=== PATIENT | female | born 1965 | race African-American/Black ===

== ENCOUNTER 2016-11-22 20:28 | Inpatient (IN) | payer MEDICARE, MEDICAID ==
[~2016-11-22] VITALS: Ht 175.3 cm; Wt 69.9 kg
[2016-11-22 20:28] VITALS: BP 170/96
--- NOTE | 2016-11-22 21:41 | Emergency Room Report ---
History of Present Illness General Chief Complaint: Dyspnea/Respdistress Source: Patient, EMS Present Illness HPI 51 YO F BIBEMS from HD after 2.5 hour session (30 min left) with "I dont feel well" including cough, SOB, chills, headache, weakness, body aches. Denies chest pain, abd pain, nausea/vomiting, diarrhea. + asthma. Non smoker. Allergies: Coded Allergies: DIPHENHYDRAMINE (Verified Allergy, Unknown, 11/22/16) MEPERIDINE (Verified Allergy, Unknown, 11/22/16) PENICILLINS (Verified Allergy, Unknown, 11/22/16) SULFA (SULFONAMIDE ANTIBIOTICS) (Verified Allergy, Unknown, 11/22/16) Patient History Past Medical History: DM, HTN, asthma, renal disease, dialysis Past Surgical History: other - right AV fistula Pertinent Family History: none Social History: Denies: alcohol use, drug use, smoking Now: No Immunizations: UTD Reviewed Nursing Documentation: PMH: Agreed, PSxH: Agreed Nursing Documentation-PMH Hx Dialysis: Yes - ESRD Review of Systems All Other Systems: negative except mentioned in HPI Physical Exam Vital Signs Date Time Temp Pulse Resp B/P Pulse Ox O2 Delivery O2 Flow Rate FiO2 11/22/16 20:18 100.2 106 20 170/96 97 Room Air Sp02 EP Interpretation: reviewed, normal, abnormal General Appearance: normal inspection, well appearing, no apparent distress, alert, GCS 15, non-toxic Head: normocephalic, atraumatic Eyes: bilateral eye EOMI, bilateral eye PERRL ENT: normal ENT inspection, hearing grossly normal, normal voice Neck: normal inspection, full range of motion, supple, no bony tend Respiratory: normal inspection, no respiratory distress, no retraction, no accessory muscle use, rhonchi, wheezing Cardiovascular #1: regular rate, rhythm, no edema Gastrointestinal: normal inspection, normal bowel sounds, non tender, soft, no guarding, no hernia Genitourinary: no CVA tenderness Musculoskeletal: normal inspection, back normal, normal range of motion, Xavier' s Sign negative Neurologic: normal inspection, alert, oriented x3, responsive, 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 Lungs c/w asthma exacerbation A: Improved with duonebs, solumedrol CXR does not show PNA labs pending Endorsed to Dr Reese for tele admission at 940pm EKG Diagnostic Results Rate: tachycardiac Rhythm: NSR ST Segments: no acute changes ASA given to the pt in ED: No Rhythm Strip Diag. Results EP Interpretation: yes Rate: 110 Rhythm: NSR, no PVC's, no ectopy Chest X-Ray Diagnostic Results EP Interpretation: Yes Findings: no consolidation, no effusion, no pneumothorax Number of Views: 1 Last Vital Signs Date Time Temp Pulse Resp B/P Pulse Ox O2 Delivery O2 Flow Rate FiO2 11/22/16 20:18 100.2 106 20 170/96 97 Room Air Status: improved Disposition: ADMITTED INPATIENT Condition: Serious Referrals: VIVEK REESE (PCP) NIECY DONNELLY M.D. Nov 22, 2016 21:41
[2016-11-22] MEDS ORDERED: Solu-MEDROL 125mg Inj IVP ONE (21:45)
[2016-11-22 22:05] LABS: BASOPHILS % (AUTO) 1.2 % (0.0-2.0); LYMPHOCYTES % (AUTO) 19.8 % (20.0-45.0); MEAN CORPUSCULAR HEMOGLOBIN 32.9 PG (27.0-31.0); MEAN CORPUSCULAR HGB CONC 31.6 G/DL (32.0-36.0); MEAN CORPUSCULAR VOLUME 104 FL (80-99); MEAN PLATELET VOLUME 5.1 FL (6.5-10.1); MONOCYTES % (AUTO) 11.7 % (1.0-10.0); NEUTROPHILS % (AUTO) 63.4 % (45.0-75.0); PLATELET COUNT 160 K/UL (150-450); RED BLOOD COUNT 2.58 M/UL (4.20-5.40); RED CELL DISTRIBUTION WIDTH 15.2 % (11.6-14.8); WHITE BLOOD COUNT 5.3 K/UL (4.8-10.8)
[2016-11-22] MEDS ORDERED: Tylenol #3 tab (300mg/30mg) ORAL ONE (22:15)
[2016-11-22] MEDS: Ipratropium 0.02% Inh Soln 2.5ml UD HHN SCH ×2 (22:26→22:27)
[2016-11-22] MEDS: Albuterol ud Inhalation HHN SCH ×2 (22:26→22:27)
[2016-11-22 22:28] LABS: ALANINE AMINOTRANSFERASE 5 U/L (3-33); ALBUMIN/GLOBULIN RATIO 1.6 (1.0-2.7); ANION GAP 18 (5-15); ASPARTATE AMINO TRANSFERASE 21 U/L (5-40); CARBON DIOXIDE 22 mEQ/L (20-30); CHLORIDE 100 mEQ/L (98-107); GLOMERULAR FILTRATION RATE 7.5 mL/min (>60); HEMOLYSIS 5; SODIUM 140 mEQ/L (135-145); TOTAL PROTEIN 6.1 g/dL (6.6-8.7)
[2016-11-22 22:38] LABS: TROPONIN I < 0.30 ng/mL (<=0.30)
[2016-11-22] MEDS ORDERED: METOPROLOL TART25 MG PO (22:43)
[2016-11-22] MEDS ORDERED: CLONIDINE HCL0.3 MG PO (22:45)
[2016-11-22] MEDS ORDERED: AMLODIPINE BESY10 MG PO (22:45)
[2016-11-22] MEDS ORDERED: OMEPRAZOLE20 M2 PO (22:46)
[2016-11-22] MEDS ORDERED: PREDNISONE20 M1 PO (22:46)
[2016-11-22] MEDS ORDERED: RENVELA800 MG PO (22:47)
[2016-11-22] MEDS ORDERED: FUROSEMIDE20 M1 PO (22:48)
[2016-11-22] MEDS ORDERED: ALPRAZOLAM0.5 MG PO (22:53)
[2016-11-22] MEDS ORDERED: HYDROXYCHLOROQ200 M1 PO (22:53)
[2016-11-22] MEDS ORDERED: LORazepam 1mg tab ORAL PRN (23:00)
[2016-11-22] MEDS ORDERED: Nitroglycerin Subl 0.4mg tab (Bottle Of 25) SL PRN (23:00)
[2016-11-22] MEDS ORDERED: Miralax 17gm pkt ORAL PRN (23:00)
[2016-11-22] MEDS ORDERED: ALPRAZolam 0.5mg tab ORAL PRN (23:00)
[2016-11-22] MEDS ORDERED: HydrALAZINE 50mg tab ORAL PRN (23:00)
[2016-11-22] MEDS: DuoNeb 0.5-3(2.5)mg/3ml neb HHN SCH (23:00)
[2016-11-23] VITALS (7 sets, daily range): BP systolic 104–177; BP diastolic 76–92
[2016-11-23] MEDS ORDERED: Vancomycin 1.25 GM in NS 275 ML IVPB ONE ×2 (00:15→06:00)
[2016-11-23] MEDS: DuoNeb 0.5-3(2.5)mg/3ml neb HHN SCH ×6 (03:00→23:28)
[2016-11-23] MEDS: Solu-MEDROL 40mg Inj IVP SCH ×3 (05:55→21:41)
[2016-11-23] MEDS: Azithromycin 250mg tab ORAL SCH (08:50)
[2016-11-23] MEDS: cloNIDine 0.2mg Tab ORAL SCH ×2 (08:50→18:29)
[2016-11-23] MEDS: Aspirin Baby 81mg ORAL SCH (08:50)
[2016-11-23] MEDS: Metoprolol 25mg tab ORAL SCH ×3 (08:50→18:29)
[2016-11-23] MEDS: Heparin 5000 units/ml inj SUBQ SCH ×2 (08:54→21:00)
--- NOTE | 2016-11-23 10:50 | Diagnostic Imaging Report ---
Indication: Shortness of breath Technique: One view of the chest Comparison: none Findings: Lungs and pleural spaces are clear. Heart size is upper limits normal Impression: No acute process
--- NOTE | 2016-11-23 11:21 | Consultation ---
Consult Note Assessment/Plan dict NIECY ROSARIO Nov 23, 2016 11:21
--- NOTE | 2016-11-23 19:17 | Consultation ---
DATE OF CONSULTATION: 11/23/2016 CHIEF COMPLAINT: Shortness of breath. HISTORY OF PRESENT ILLNESS: The patient is a 51-year-old woman who has had cough and congestion with yellow mucus for several days. She states that this became worse while she was finishing her dialysis yesterday and she was brought to the emergency department from her dialysis unit. She was found to have a clear chest x-ray and wheezing and diagnosis of asthma was made. The patient states that she has not been aware of asthma in the past. She has had pneumonia twice before. PAST MEDICAL HISTORY: Hypertension, renal failure on dialysis, pneumonia, vitiligo. ALLERGIES: Benadryl, Demerol, penicillin, sulfa. MEDICATIONS: Reviewed. SOCIAL HISTORY: She smokes occasionally REVIEW OF SYSTEMS: Otherwise unremarkable. PHYSICAL EXAMINATION: GENERAL: The patient is alert and responds appropriately. VITAL SIGNS: Blood pressure has been elevated as high as 179/88. She had a low-grade fever 100.2 yesterday. SKIN: Warm and dry. Vitiligo is noted. HEENT: head is normocephalic. She has placed. CHEST: Expiratory wheezing. CARDIAC: Rhythm is regular. ABDOMEN: Soft and nontender. EXTREMITIES: No edema. DIAGNOSTIC DATA: Chest x-ray is clear. LABORATORY STUDIES: Showed anemia. Creatinine is 7. Natriuretic peptide is 33,000. Platelets are normal. White count is normal. IMPRESSION: 1. Exacerbation of asthma. 2. Renal failure on dialysis. 3. Anemia of renal failure. 4. Hypertension. PLAN: The patient is appropriately treated with antibiotics and nebulized bronchodilators and steroids. I will follow her closely in the hospital with you. Shiv Garcia M.D. DR: Kimo JOB#: [id number] CC: Josue Stern M.D.; Fax#: [phone]
[2016-11-23] MEDS ORDERED: ALPRAZolam 0.25mg tab ORAL SCH (21:00)
[2016-11-24] VITALS (19 sets, daily range): BP systolic 117–148; BP diastolic 73–86
--- NOTE | 2016-11-24 00:07 | History and Physical Report ---
DATE OF ADMISSION: 11/22/2016 CHIEF COMPLAINT AND REASON FOR HOSPITALIZATION: The patient is a 51-year-old lady with history of lupus and end-stage renal disease admitted with fevers, shortness of breath, and weakness. HISTORY OF PRESENT ILLNESS: The patient has end-stage renal disease secondary to lupus and was on dialysis and she felt very bad and was taken off the dialysis and felt that she was having an asthma exacerbation and was very weak. She came to the emergency room and had temperature of a 100.2 degrees, blood pressure 170/96, felt weak, and was in some respiratory distress, and was admitted to the hospital. She has had lupus since 2001 with hair loss, butterfly rash, and severe arthritis. The patient has had end-stage renal disease secondary to lupus. She has also had kidney stones, prior hematuria, and multiple urologic procedures with stents that are not removed. She denies dysuria or hematuria. She was recently at [facility] for fevers and sepsis due to a dialysis catheter that subsequently removed. We urged her to remove the catheter earlier, but she was afraid to use her fistula, which is now working fine in the right upper arm. She has hypertension, difficult to control. She has had difficulty tapering steroids, as she has had recurrent asthma exacerbation and when I met her a few months ago, she was on 35 mg of prednisone after an exacerbation, but now has been taking 10 mg daily. ALLERGIES: Penicillin and sulfa. PAST SURGICAL HISTORY: Include ureteral stents, possible lithotripsy for kidney stones, lipoma on the right side of the neck, right upper arm AV fistula, tonsillectomy, and dialysis catheters. HOME MEDICATIONS: Include Plaquenil 200 mg b.i.d., prednisone 10 mg daily, Sevelamer two pills t.i.d., spectrum vitamins one daily, omeprazole 20 mg daily, clonidine 0.1 mg b.i.d., DSS 100 mg b.i.d., Tylenol No. 3 p.r.n., Norvasc 10 mg daily, Ventolin inhaler p.r.n., Advair inhaler b.i.d., and Xanax 1 mg at bedtime p.r.n. GYNECOLOGIC HISTORY: She is 2, para 2, with 4 spontaneous abortions. She has sporadic menses with no regular menses. SOCIAL HISTORY: Single. Lives with her mother. 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 FAMILY HISTORY: Maternal grandmother of CVA at age 87. Her mother is 72-year-old, alive, and well. She has two sisters, one with a lumbar disk and the other sister is alive and well. Her father possibly of radiation, it is not clear, this is in the 1960s. SYSTEM REVIEW: CONSTITUTIONAL: Her weight has been stable. She has had on and off fevers. PULMONARY: Severe asthma as above with recurrent exacerbations and hospitalizations. CARDIAC: History of severe hypertension and history of congestive heart failure recently. She has not had fluid overload. Blood pressure is high before dialysis because she holds her medicine on dialysis day until dialysis is completed. GASTROINTESTINAL: History of gastritis and peptic ulcers, improved with omeprazole. No hematochezia or melena. PSYCHOLOGIC: History of anxiety and panic attacks, improved with Xanax. MUSCULOSKELETAL: Chronic joint pain, which she attributes to her lupus. HEMATOLOGIC: History of anemia of chronic disease and renal disease recently requiring increased doses of Aranesp. SKIN: She has had a butterfly rash. PHYSICAL EXAMINATION: GENERAL: The patient is an alert lady, chronically ill appearing, and in no acute distress. VITAL SIGNS: Blood pressure is 175/85, temperature 99.4 degrees, pulse 96, and respirations 18. HEENT: She has cushingoid facies and some bladder fly rashes, chronic. Oral mucosa is moist. There is no conjunctivitis. NECK: No adenopathy. LUNGS: Distant breath sounds. Faint wheeze. HEART: Regular rhythm. Normal S1 and S2. There is a 2/6 systolic ejection murmur. ABDOMEN: Soft. I am not able to feel liver or spleen. EXTREMITIES: No edema, cyanosis, or clubbing. There are mild arthritic changes in the hands. There is no synovitis. NEUROLOGIC: She is alert and oriented. Cranial nerves are intact. No focal weakness. PERTINENT LABORATORY AND DIAGNOSTIC DATA: Show a normal chest x-ray. White count 5.3 and hemoglobin 8.5. Sodium 140, potassium 4, chloride 100, CO2 22, BUN 40, and creatinine 7.0. BNP 33,169. Troponin less than 0.30. IMPRESSION: 1. Asthma with acute exacerbation. 2. Low-grade fever, possible residual from prior infection and sepsis with some catheter, possibly urinary tract infection, and possible other. 3. End-stage renal disease. 4. Hypertensive heart disease. 5. Lupus. 6. History of gastritis. PLAN: The patient has been cultured and put on vancomycin in view of her recent sepsis. We are treating her with steroids and nebulizer treatments for asthma and hope to taper steroids quickly. We will watch for recurrent fever and continue her medical management for all of the above. Josue Stern M.D. DR: JESUS JOB#: [id number] CC:
[2016-11-24] MEDS: DuoNeb 0.5-3(2.5)mg/3ml neb HHN SCH ×3 (03:30→10:59)
[2016-11-24] MEDS: Solu-MEDROL 40mg Inj IVP SCH (05:51)
[2016-11-24] MEDS: Aspirin Baby 81mg ORAL SCH (08:09)
[2016-11-24] MEDS: Metoprolol 25mg tab ORAL SCH (08:10)
[2016-11-24] MEDS: cloNIDine 0.2mg Tab ORAL SCH (08:10)
[2016-11-24] MEDS: Heparin 5000 units/ml inj SUBQ SCH (08:11)
[2016-11-24] MEDS: Azithromycin 250mg tab ORAL SCH (08:11)
[2016-11-24] MEDS ORDERED: CLONIDINE 0.2M0.2 MG ORAL (12:37)
[2016-11-24] MEDS ORDERED: CARDIZEM CD180 MG ORAL (12:37)
[2016-11-24] MEDS ORDERED: Diltiazem CD 180mg cap ORAL SCH (12:45)
[2016-11-24] MEDS ORDERED: NS 275ml ONE (13:19)
[2016-11-24] MEDS ORDERED: Tubing IV Secondary IV ONE (13:19)
[2016-11-24 14:34] LABS: CKMB < 1.5 ng/mL (< 3.8)
--- NOTE | 2016-11-24 18:02 | Pulmonology Progress Note ---
Assessment/Plan Assessment/Plan 1. Exacerbation of asthma. 2. Renal failure on dialysis. 3. Anemia of renal failure. 4. Hypertension. on HD anxious to go home no more wheezing ok for dc Subjective Respiratory: Denies: productive cough, shortness of breath, wheezing Allergies: Coded Allergies: DIPHENHYDRAMINE (Verified Allergy, Unknown, 11/22/16) MEPERIDINE (Verified Allergy, Unknown, 11/22/16) PENICILLINS (Verified Allergy, Unknown, 11/22/16) SULFA (SULFONAMIDE ANTIBIOTICS) (Verified Allergy, Unknown, 11/22/16) Objective Last 24 Hour Vital Signs Date Time Temp Pulse Resp B/P Pulse Ox O2 Delivery O2 Flow Rate FiO2 11/24/16 13:39 101 11/24/16 12:00 97.9 87 18 148/86 11/24/16 11:46 86 18 138/83 11/24/16 11:31 98.1 88 18 146/85 98 Room Air 11/24/16 11:30 84 18 134/84 11/24/16 11:15 139/85 11/24/16 11:00 97 18 117/85 11/24/16 11:00 85 18 98 Room Air 11/24/16 10:59 84 18 99 Room Air 11/24/16 10:45 93 18 148/84 11/24/16 10:30 85 18 146/83 11/24/16 10:16 87 18 134/78 11/24/16 10:00 90 18 141/80 11/24/16 09:45 107 18 125/86 11/24/16 09:30 88 18 138/79 11/24/16 09:15 89 18 141/82 11/24/16 09:00 90 18 130/78 11/24/16 08:45 86 18 133/73 11/24/16 08:30 97.7 89 18 140/79 11/24/16 08:01 97.7 92 18 124/74 99 Room Air 11/24/16 08:00 90 11/24/16 07:07 87 18 98 Room Air 11/24/16 07:04 89 18 99 Room Air 11/24/16 07:04 89 18 Room Air 11/24/16 04:35 98.4 81 18 129/78 94 Room Air 11/24/16 04:00 104 11/24/16 03:50 Room Air 11/24/16 03:49 Room Air 11/24/16 00:28 98.6 78 19 132/81 95 Room Air 11/24/16 00:00 81 11/23/16 23:36 89 18 98 Room Air 11/23/16 23:28 85 18 98 Room Air 11/23/16 20:00 83 11/23/16 20:00 98.2 75 22 131/81 100 Nasal Cannula 2.0 11/23/16 19:35 91 18 98 Room Air 11/23/16 19:25 76 18 98 Room Air 11/23/16 19:25 76 18 Room Air 11/23/16 18:29 130/76 11/23/16 18:29 81 130/76 Intake and Output 11/23/16 11/24/16 19:00 07:00 Intake Total 777.5 ml 300 ml Balance 777.5 ml 300 ml Intake Oral 640 ml 300 ml IV Total 137.5 ml # Voids 2 1 Respiratory/Chest: lungs clear Cardiovascular: normal rate Microbiology Date/Time Source Procedure Growth Status 11/23/16 00:20 Blood Blood Culture - Preliminary NO GROWTH AFTER 24 HOURS Resulted 11/23/16 00:00 Blood Blood Culture - Preliminary NO GROWTH AFTER 24 HOURS Resulted 11/23/16 00:30 Nasal Not Otherwise Specified Influenza Types A,B Antigen (RADHA) - Final Complete Laboratory Tests 11/24/16 09:00: Hepatitis A IgM Antibody [Pending], Hepatitis B Surface Antigen [Pending], Hepatitis B Core IgM Antibody [Pending], Hepatitis C Antibody [Pending] NIECY ROSARIO Nov 24, 2016 18:02
[2016-11-24] MEDS ORDERED: Epogen (for ESRD on dialysis) SUBQ SCH (21:00)
--- NOTE | 2016-11-25 09:48 | Discharge Summary ---
DATE OF ADMISSION: 11/22/2016 DATE OF DISCHARGE: 11/24/2016 PERTINENT HISTORY: The is a 51-year-old, lady with history of lupus, end-stage renal disease, and asthma, who was admitted with fever, shortness of breath, weakness and increasing asthma. PERTINENT PHYSICAL FINDINGS: See the dictated History and Physical. GENERAL: The patient is chronically ill-appearing. HEAD EYES, EARS, NOSE, AND THROAT: She has cushingoid facies and butterfly rash. NECK: No adenopathy. LUNGS: Distant breath sounds. At the time of my examination, faint wheezes. HEART: Regular rhythm. ABDOMEN: Soft without organomegaly. EXTREMITIES: No edema. COURSE IN THE HOSPITAL: The patient received empiric antibiotics and blood cultures, and influenza study was negative. Chest x-ray showed no active disease. She had exacerbation of asthma and was given steroids and nebulizer treatments, improvement in respirations. She had elevated blood pressures in the 170 range and blood pressure regimen was given and improved. She felt better with the above. She had dialysis without complication. She had an elevated BNP, but no CHF on chest x-ray. The patient felt better and was discharged home in stable condition. FINAL DIAGNOSES: 1. Acute asthma exacerbation. 2. Acute bronchitis. 3. End-stage renal disease. 4. Malignant hypertension. 5. Lupus. 6. History of gastritis. DISCHARGE DISPOSITION: She is discharged on a renal diet. Medications per the discharge medication list, which include diltiazem 180 mg daily, amlodipine 10 mg daily, clonidine 0.6 mg b.i.d., aspirin 81 mg daily, Renvela two tablets each meal, Xanax 0.5 mg p.r.n., renal vitamins one daily, Plaquenil 200 mg b.i.d., prednisone 40 mg daily, and taper. Follow up by Dr. Stern in the outpatient dialysis unit. She will also get Aranesp dose adjusted per dialysis unit protocol. Thank you so much. Josue Stern M.D. DR: Eyal JOB#: [id number] CC:
--- NOTE | 2016-11-25 15:45 | Cardiology Report ---
APPROVED REPORT EKG Measurement Heart [id number] Sinus tachycardia Right atrial enlargement Nonspecific ST and T wave abnormality Abnormal ECG
== END 2016-11-24 13:20 | disposition home or self-care (01) | DRG 202 ==
LOC: EDBD 20:28 → EMR 21:09 → 2E 21:22 → EDBEDREQ 11-23 01:30 → 2E 11-23 05:24
PROC: 5A1D00Z (ICD-10-PCS; principal; 2016-11-24)
DX: J45.901 Unspecified asthma with (acute) exacerbation (principal); N18.6 End stage renal disease; I13.11 Hypertensive heart and chronic kidney disease without heart failure, with stage 5 chronic kidney disease, or end stage renal disease; D63.1 Anemia in chronic kidney disease; Z99.2 Dependence on renal dialysis; L93.0 Discoid lupus erythematosus; J20.9 Acute bronchitis, unspecified; Z88.0 Allergy status to penicillin; Z88.2 Allergy status to sulfonamides; Z72.0 Tobacco use
CPT/HCPCS: 36415; 71010; 80053; 82550; 82553; 83880; 84484; 85025; 86705; 86709; 86710; 86803; 87040; 87081; 87340; 93005; 94640; 94664; J2405; J7620